=== PATIENT | male | born 1950 | race Caucasian/White ===

== ENCOUNTER → 2023-06-28 06:40 | Day surgery (SDC) | payer OTHER, SELFPAY | LOC: GI 06:40 | PROVIDERS: ATTENDING PHYSICIAN Internal Medicine Gastroenterology | DX: Z12.11 Encounter for screening for malignant neoplasm of colon (principal); Z85.038 Personal history of other malignant neoplasm of large intestine; Z98.0 Intestinal bypass and anastomosis status; K64.8 Other hemorrhoids | CPT/HCPCS: G0105 ==

== ENCOUNTER → 2024-01-26 14:15 | Outpatient (REF) | payer OTHER, SELFPAY | LOC: RAD 14:15 | PROVIDERS: ATTENDING PHYSICIAN Internal Medicine; FAMILY PHYSICIAN Physician Assistant Medical | DX: M81.0 Age-related osteoporosis without current pathological fracture (principal) | CPT/HCPCS: 77080 ==

== ENCOUNTER 2024-03-11 02:45 | Emergency (ER) | payer OTHER, SELFPAY ==
[2024-03-11 02:52] VITALS: BP 181/76
[2024-03-11 03:00] VITALS: BP 179/88
[2024-03-11 03:08] LABS: % Eosinophils 4.7 % (0-6); % Immature Granulocytes 0.2 % (0-0.5); % Lymphocytes 25.1 % (20.5-51.1); % Monocytes 11.4 % (1.7-9.3); % Neutrophils 57.6 % (42.2-75.2); Absolute Basophils 0.1 10^3/uL (0-0.2); Absolute Eosinophils 0.2 10^3/uL (0-0.7); Absolute Lymphocytes 1.3 10^3/uL (1.2-3.4); Absolute Monocytes 0.6 10^3/uL (0.1-0.6); Absolute Neutrophils 2.9 10^3/uL (1.4-6.5); Hematocrit 45.7 % (39.0-52.0); Hemoglobin 15.8 g/dL (13.0-18.0); Mean Corp Hgb Conc. 34.6 g/dL (33.0-37.0); Mean Corpuscular Hgb 31.5 pg (27.0-31.0); Mean Platelet Volume 8.6 fL (7.4-10.4); Nucleated Red Blood Cells % 0 % (-); Platelet Count 179 10^3/uL (130-400); Red Blood Cell Count 5.02 10^6/uL (4.70-6.10); Red Cell Dist. Width 12.1 % (11.5-14.5); White Blood Cell Count 5.1 10^3/uL (4.8-10.8)
[2024-03-11 03:29] LABS: Troponin I < 0.012 ng/ml
[2024-03-11 03:35] LABS: ALT (SGPT) 34 U/L (0-50); AST (SGOT) 35 U/L (17-59); Albumin 4.6 g/dl (3.5-5.0); Alkaline Phosphatase 32 U/L (38-126); Blood Urea Nitrogen 22 mg/dl (9-20); Calcium 9.7 mg/dl (8.4-10.2); Carbon Dioxide 29 mmol/L (22-30); Chloride 102 mmol/L (98-107); Glucose 126 mg/dl (70-99); Sodium 142 mmol/L (135-145); Total Bilirubin 0.5 mg/dl (0.2-1.3); Total Protein 6.9 g/dl (6.3-8.2); eGFR > 60.00
--- NOTE | 2024-03-11 03:53 | ED.GENMED ---
History of Present Illness
General
Chief Complaint: Chest Pain
Source: patient
Exam Limitations: none
Time Seen by Provider: 03/11/24 03:47
Nursing documentation reviewed up to this point in time: agreed with
History of Present Illness
History of Present Illness:
This is a 73-year-old gentleman who has history of hypertension, hyperlipidemia who presents this morning with complaints of left upper chest pain that seem to wake him up at 1:00 this morning. Patient admits to waking up at 1 AM and feeling hot,
somewhat sweaty but noted that he was under several blankets/covers. Once he woke up and noticed that he was hot and sweaty he then got up out of bed and noticed dull left upper chest pain that is nonradiating but persistent. He states he checked
his blood pressure and it was elevated at 178 systolic which is unusual for him. He states his blood pressure is generally well-controlled. Due to elevated blood pressure and left-sided chest pain, this brought him to the ED for evaluation.
He denies coughing or shortness of breath, denies nausea, no dizziness nor lightheadedness. He has not had a fever nor chills. No leg pain or swelling.
He remains active, was cutting goncalves 2 days ago and admits to becoming mildly tired after doing so causing him to rest but then he was able to complete his outdoor chores without difficulty later that day. He walked around [facility] with
his daughter and granddaughter yesterday without symptomatology.
Past History
Past History
ED Past Medical History: Cancer (Colon cancer), HTN and Hypercholesterolemia
ED Past Surgical History: Appendectomy and Bowel resection
Patient has exhibited threatening behavior?: No
Social History
Tobacco: Non-smoker
Alcohol: None
Drug: None
Personal:
Living: with family
Employment: Retired
Family History
Family History: Other (Noncontributory)
Phy Exam
Physical Exam
Physical Exam:
GENERAL: 73-year-old gentleman appears his stated age, awake and alert, pleasant, appears in no acute distress. is accompanying.
EYE: . anicteric
NECK: Supple, nontender, no meningismus, no significant adenopathy.
ENT: oral mucosa is moist. No rhinorrhea.
CARDIAC: Regular rate and rhythm. no murmur. Mild tenderness left upper chest wall. Palpation seems to exactly reproduce patient's pain complaint.
LUNGS: Clear breath sounds bilaterally, no acute respiratory distress, no wheezes/rales/rhonchi
ABDOMEN: Soft, nondistended, without focal tenderness, no r/g, no cvat. normoactive BS.
NEUROLOGICAL: Alert and oriented x3, no focal neuro deficits. Gait is steady.
SKIN: Warm and dry, normal color, skin intact. No rash.
MUSCULOSKELETAL: No C/C/E. peripheral pulses are full and equal b/l. No palpable tenderness.
PSYCH: Normal and appropriate interaction.
Scores
Heart Score for Chest Pain Patients
STEMI patient?: No
History: Slightly or Non-Suspicious
ECG: Normal
Age: >/= 65 years
Risk Factors: 1 or 2 Risk Factors
Troponin: </= Normal Limit
Heart Score for Chest Pain Patients: 3
Heart Score Risk: 2.5% MACE over next 6 weeks
Course
Orders/Labs/Results
Orders:
Orders
03/11/24 02:46
Electrocardiogram (*1) Urgent
Reason for Study: Chest Pain
03/11/24 02:47
EKG- Treatment ONCE
03/11/24 02:58
CMP [Comprehensive Metabolic Panel] Urgent
Complete Blood Count/With Diff Urgent
Troponin I Routine
03/11/24 03:53
CR Chest - 2 Views Urgent
Comment:
Reason For Exam: left uppper chest pain
03/11/24 05:02
Troponin I Urgent
03/11/24 05:54
Ketorolac [Toradol] 30 mg IV NOW STA
Abnormal Lab Results
03/11/24
02:58
MCH 31.5 H pg
(27.0-31.0)
Monocytes % 11.4 H %
(1.7-9.3)
BUN 22 H mg/dl
(9-20)
Glucose 126 H mg/dl
(70-99)
Alkaline Phosphatase 32 L U/L
(38-126)
03/11/24 02:58
03/11/24 02:58
Vital Signs
Initial and Last Documented VS:
Initial Vital Signs
BP
181
03/11/24 02:52
Last Documented Vital Signs
Temp Pulse Resp BP Pulse Ox
97.7 F 58 10 97
03/11/24 02:56 03/11/24 02:54 03/11/24 02:54 03/11/24 02:52 03/11/24 03:10
MDM/Problems Addressed
Differential Diagnosis Includes:
Concern for ACS, GERD, musculoskeletal chest pain, aortic dissection is unlikely.
Patient noted to have moderate systolic hypertension, improving.
EKG shows right bundle branch block, similar and unchanged from previous January 2021.
Labs thus far are unremarkable. Negative troponin.
Will check chest x-ray and plan to repeat troponin.
Chronic conditions affecting care: HTN and Other (Hyperlipidemia)
*Radiology
Radiology exam reviewed: preliminary read by ED provider (Chest x-ray shows very mild interstitial lung disease, normal heart size, normal mediastinum. Overall several and unchanged from previous 2020.)
*Pulse Oximetry
Patient hypoxic: no
*EKG
Interpreted by ED Provider?: Yes
Comparison EKG: no changes (Unchanged from previous January 2021)
Rate: normal
Rhythm: sinus
[place]: normal axis
Interval: normal interval
QRS Pattern: right bundle branch block
Ischemia: no ischemia
*Dye Mixer Interpretation
Rate: normal
Interpretation: normal
Rhythm: sinus
*Critical Care Note
Total Time (30-74mins, 75-104mins- exclusive of procedures): Not Applicable
Update Note
Update Note:
Repeat troponin is negative.
Chest x-ray is unremarkable. Clear lung bermudez. Normal heart size. Normal mediastinum.
Overall continues to appear well. Continues with some left upper chest pain that is clearly reproducible, worse with palpation.
I suspect musculoskeletal chest wall pain, pectoralis muscle strain and will trial an IV dose of Toradol.
Systolic hypertension improving, currently 150.
Recommend supportive measures, rest, local heat, Tylenol versus ibuprofen for pain and prompt follow-up with PCP.
Return precautions discussed.
ED Attending Note
-
Portions of this chart may have been created with voice recognition software.� Occasional wrong word or��sound alike� substitutions may have occurred due to the inherent limitations of voice recognition software.
Discharge Plan
Departure
Patient Disposition: Home (Routine Discharge)
Date of Disposition: 03/11/24
Time of Disposition: 05:56
Patient with high blood pressure during this ER visit?: No
Condition: Good
Discharge Problem:
Nonspecific chest pain
Instructions: Costochondritis (DC), Chest Pain PCP Follow Up
Prescriptions:
No Action
prednisone 10 MG tablet
14 mg PO DAILY
simvastatin 40 MG tablet
1 dose PO DAILY
lisinopril-hydrochlorothiazide 1 EACH tablet
1 ea PO
prednisone 5 MG tablets,dose pack
25 mg PO DAILY Qty: 150 0RF
Referrals:
Pete Valadez PA-C [Family Provider] - Call in 1-3 days for appt
Interventions
Interventions:
*Risk Screen - Suicide Last Done: 03/11/24 02:53
*General Assessment Last Done: 03/11/24 02:53
*Neglect/Abuse Screening Last Done: 03/11/24 02:53
ED- Fall Risk Assessment Last Done: 03/11/24 03:10
*ED COVID-19 Vaccine History Last Done: 03/11/24 02:58
ED- Cardiac Assessment Last Done: 03/11/24 03:10
Discharge Date and Time
Print Language: SURINAMESE
[2024-03-11 04:43] VITALS: BP 150/71
[2024-03-11 05:00] VITALS: BP 158/76
[2024-03-11 05:40] LABS: Troponin I < 0.012 ng/ml
[2024-03-11 06:00] VITALS: BP 158/85
[2024-03-11] MEDS: TORADOL 30 MG IV (06:06)
== END 2024-03-11 06:20 | disposition home or self-care (01) ==
LOC: EMR 02:45
PROVIDERS: EMERGENCY PHYSICIAN Emergency Medicine; FAMILY PHYSICIAN Physician Assistant Medical
DX: R07.89 Other chest pain (principal); I10 Essential (primary) hypertension; E78.00 Pure hypercholesterolemia, unspecified; Z85.038 Personal history of other malignant neoplasm of large intestine; Z90.49 Acquired absence of other specified parts of digestive tract
CPT/HCPCS: 99283; 96374; 71046; 80053; 84484; 85025; 93005